=== PATIENT | female | born 1965 | race African-American/Black ===

== ENCOUNTER → 2023-09-25 | Outpatient (REF) | payer BC | LOC: CT 16:01 | PROVIDERS: ATTEND Neurological Surgery | DX: S06.5XAD Traumatic subdural hemorrhage with loss of consciousness status unknown, subsequent encounter (principal) | CPT/HCPCS: 70450 ==

== ENCOUNTER 2024-04-01 06:50 | Outpatient (RCR) | payer BC | END 2024-04-25 | LOC: ST 06:50 | PROVIDERS: ATTEND Psychiatry & Neurology Neurology | DX: G11.9 Hereditary ataxia, unspecified (principal); Z98.890 Other specified postprocedural states; F80.89 Other developmental disorders of speech and language ==